=== PATIENT | female | born 1950 | race Caucasian/White ===

== ENCOUNTER 2020-07-13 11:06 | Emergency (ER) | payer OTHER ==
[2020-07-13 12:38] LABS: ABSOLUTE BASOPHILS # (AUTO) 0.1 10^3/uL (0.0-0.2); ABSOLUTE EOSINOPHILS # (AUTO) 0.1 10^3/uL (0.0-0.6); ABSOLUTE LYMPHOCYTES (AUTO) 1.6 10^3/uL (0.5-4.7); ABSOLUTE MONOCYTES (AUTO) 1.3 10^3/uL (0.1-1.4); ABSOLUTE NEUT (AUTO) 9.7 10^3/uL (1.7-8.2); BASOPHILS % (AUTO) 0.5 % (0-2); EOSINOPHILS % (AUTO) 1.1 % (0-6); HEMATOCRIT 36.4 % (36.0-47.0); HEMOGLOBIN 12.1 g/dL (12.0-15.5); LYMPHOCYTES % (AUTO) 12.6 % (13-45); MEAN CORPUSCULAR HEMOGLOBIN 26.3 pg (27.0-33.4); MEAN CORPUSCULAR HGB CONC 33.2 g/dL (32.0-36.0); MEAN CORPUSCULAR VOLUME 79 fl (80-97); MONOCYTES % (AUTO) 10.2 % (3-13); PLATELET COUNT 252 10^3/uL (150-450); RED BLOOD COUNT 4.59 10^6/uL (3.72-5.28); RED CELL DISTRIBUTION WIDTH 13.1 % (11.5-14.0); SEGMENTED NEUTROPHILS % (AUTO) 75.6 % (42-78); TOTAL CELLS COUNTED % (AUTO) 100 %; WHITE BLOOD COUNT 12.8 10^3/uL (4.0-10.5)
[2020-07-13 12:55] LABS: ALBUMIN 4.2 g/dL (3.5-5.0); ALKALINE PHOSPHATASE 86 U/L (38-126); ANION GAP 8 (5-19); ASPARTATE AMINO TRANSFERASE 23 U/L (14-36); BILIRUBIN,DIRECT 0.1 mg/dL (0.0-0.4); BILIRUBIN,TOTAL 0.3 mg/dL (0.2-1.3); BLOOD UREA NITROGEN 17 mg/dL (7-20); CALCIUM 9.7 mg/dL (8.4-10.2); CARBON DIOXIDE 23 mmol/L (22-30); CHLORIDE 104 mmol/L (98-107); GLUCOSE 113 mg/dL (75-110); POTASSIUM 4.3 mmol/L (3.6-5.0); TOTAL PROTEIN 7.4 g/dL (6.3-8.2)
--- NOTE | 2020-07-13 13:43 | ER Document Report ---
ED General - General Chief Complaint: Vaginal Bleeding Stated Complaint: VAGINAL BLEEDING Time Seen by Provider: 07/13/20 13:37 Primary Care Provider: CHARLIE FINK FNP-C [Primary Care Provider] - Follow up as needed Mode of Arrival: Ambulatory Information source: Patient Notes: 6-year-old female presenting to the emergency department concern for vaginal bleeding. Patient reports she has had an intermittent vaginal bleeding over the last few years related to uterine polyp however over the last few days the bleeding has considerably increased. Today she was passing dark red blood clots. Patient reports she is seen by gynecology at [facility]. She is s upposed to have a D&C done on the of this month, which is approximately 2 weeks from now. Patient denies any dizziness or episodes of syncope. She has never had a blood transfusion. - Related Data Allergies/Adverse Reactions: amoxicillin Allergy (Verified 07/13/20 18:20) doxycycline Allergy (Verified 07/13/20 18:20) Sulfa (Sulfonamide Antibiotics) Allergy (Verified 07/13/20 18:20) Home Medications: lisinopril. Ativan. prilosec. Famatine Past Medical History - General Information source: Patient - Social History Smoking Status: Never Smoker Frequency of alcohol use: Occasional Family History: Reviewed & Not Pertinent - Past Medical History Cardiac Medical History: Reports: Hx Hypercholesterolemia, Hx Hypertension GI Medical History: Reports: Hx Gastroesophageal Reflux Disease Past Surgical History: Reports: Hx Orthopedic Surgery Review of Systems - Review of Systems Female Genitourinary: Vaginal bleeding -: Yes All other systems reviewed and negative Physical Exam - Vital signs Vitals: Temp 98.4 F 07/13/20 11:07 - Notes Notes: PHYSICAL EXAMINATION: GENERAL: Well-appearing, well-nourished and in no acute distress. HEAD: Atraumatic, normocephalic. EYES: Pupils equal round and reactive to light, extraocular movements intact, conjunctiva are normal. ENT: Nares patent, oropharynx clear without exudates. Moist mucous membranes. NECK: Normal range of motion, supple without lymphadenopathy LUNGS: Breath sounds clear to auscultation bilaterally and equal. No wheezes rales or rhonchi. HEART: Regular rate and rhythm without murmurs ABDOMEN: Soft, nontender, nondistended abdomen. No guarding, no rebound. No masses appreciated. Female : Pelvic exam chaperoned by JESSICA Bryan. No active bleeding noted at this time, no cervical motion or adnexal tenderness. Patient appears to have a prolapsed uterus, it is prolapsed into the vaginal vault. Musculoskeletal: Normal range of motion, no pitting or edema. No cyanosis. NEUROLOGICAL: Cranial nerves grossly intact. Normal speech, normal gait. Normal sensory, motor exams PSYCH: Normal mood, normal affect. SKIN: Warm, Dry, normal turgor, no rashes or lesions noted. Course - Re-evaluation Re-evalutation: 07/13/20 16:34 Call placed to [facility] to speak with on-call for patient's seed sorter. Patient's work-up today has been reassuring. Hemoglobin and hematocrit are within normal limits. Transvaginal ultrasound as outlined below. I did speak with the on-call seed sorter that is covering for patient's [employer] TECH[employer]IC[employer]. I have discussed patient's ultrasound findings with them, they are willing to see the patient sooner if needed. Patient given strict ED return precautions. Transvaginal US 07/13/20 14:55 IMPRESSION: 1. 5.6 x 4.3 x 3.9 cm mass in the cervix - consider correlation with physical examination. 2. Normal endometrial thickness. 3. Nonvisualization of the ovaries. There is no adnexal mass. - Vital Signs Vital signs: Temp Pulse Resp BP Pulse Ox 98.1 F 75 18 122/84 100 07/13/20 18:58 07/13/20 18:58 07/13/20 18:58 07/13/20 18:58 07/13/20 18:58 - Laboratory Results Result Diagrams: 07/13/20 12:08 07/13/20 12:08 Laboratory Results Interpreted: 07/13/20 07/13/20 12:08 12:08 WBC 12.8 H MCV 79 L MCH 26.3 L Lymph % (Auto) 12.6 L Absolute Neuts (auto) 9.7 H Sodium 135.4 L Glucose 113 H Critical Laboratory Results Reviewed: No Critical Results - Radiology Results Critical Radiology Results Reviewed: No Critical Results Discharge - Discharge Clinical Impression: Vaginal bleeding Condition: Stable Disposition: HOME, SELF-CARE Additional Instructions: Please take medication as prescribed. Return to the emergency department if you are bleeding heavily, that is bleeding through more than 2 pads per hour for 4 hours consecutively or you have heavy vaginal bleeding accompanied by dizziness or if you like you are going to pass out. Please call your seed sorter to schedule a follow-up appointment, call them tomorrow let them know you were seen in the emergency department and that we consulted them. Prescriptions: Medroxyprogesterone Acet [Provera 10 Mg Tablet] 10 mg PO DAILY #7 tablet Referrals: CHARLIE FINK FNP-C [Primary Care Provider] - Follow up as needed
--- NOTE | 2020-07-13 15:58 | RADIOLOGY REPORT (SQ) ---
EXAM DESCRIPTION: U/S NON-OB PELVIS TV W/O DOP IMAGES COMPLETED DATE/TIME: 07/13/2020 3:45 pm REASON FOR STUDY: vag bleed, hx of uterine polyp COMPARISON: None. TECHNIQUE: Dynamic and static grayscale images acquired of the pelvis via transvaginal approach and recorded on PACS. Additional selected color Doppler and spectral images recorded. LIMITATIONS: None. FINDINGS: UTERUS: The uterus measures 6.6 x 4.5 x 3.3 cm. ENDOMETRIAL STRIPE: The endometrial stripe measures 3 mm in thickness. CERVIX: There is a heterogeneous mass in the cervix that measures 5.6 x 4.3 x 3.9 cm. RIGHT OVARY AND DOPPLER: Unable to visualize the right ovary. There is no adnexal mass. LEFT OVARY AND DOPPLER: Unable to visualize the left ovary. There is no adnexal mass. FREE FLUID: None noted. OTHER: No other findings. IMPRESSION: 1. 5.6 x 4.3 x 3.9 cm mass in the cervix - consider correlation with physical examinati on. 2. Normal endometrial thickness. 3. Nonvisualization of the ovaries. There is no adnexal mass. TECHNICAL DOCUMENTATION: JOB ID: [id number] 2010 [employer]- All Rights Reserved Rev-12/22 Reading location - IP/workstation name: [email or web address]
[2020-07-13] MEDS ORDERED: MEDROXYPROGESTERONE ACET 10 MG TABLET PO ONE (17:34)
[2020-07-13 18:59] VITALS: BP 122/84
== END 2020-07-13 18:58 | disposition home or self-care (01) ==
LOC: ER 11:06
DX: N93.9 Abnormal uterine and vaginal bleeding, unspecified (principal); Z88.0 Allergy status to penicillin; Z88.2 Allergy status to sulfonamides; Z88.1 Allergy status to other antibiotic agents; Z79.899 Other long term (current) drug therapy; I10 Essential (primary) hypertension
CPT/HCPCS: 99284; 86900; 86901; 36415; 86850; 85025; 80053; 76830; J3490